=== PATIENT | male | born 1935 | race African-American/Black ===

== ENCOUNTER → 2016-10-20 | Outpatient (CLI) | payer MEDICARE ==
--- NOTE | ~2016-10-20 | CT57 ---
[facility] A Service of [facility] / [facility] RADIOLOGY TEXT RESULTS PATIENT: ALEJA SUAREZ LOCATION: [facility] : 37 UNIT #: [id number] AGE: [address]: TEREZA FLETCHER MD SEX: M ORDER DR: [id number] [facility] [address] [place], [place] [address] [id number] O MR#: [id number] Acc #: [id number] NAME: ALEJA SUAREZ : 1935 SEX: M STUDY DATE/TIME: 10/20/2016 10:31 UNIT: [facility] ROOM: STUDY DESCRIPTION: CT Chest Wo Cont Attending Physician: Tereza Fletcher M.D. Referring Physician: Tereza Fletcher M.D. Ordering Physician: Tereza Fletcher M.D. Primary Care Physician: Tereza Fletcher M.D. MEDICAL IMAGING REPORT This report is preliminary unless electronic signature is present EXAM CT scan of the chest without contrast INDICATION Abnormal chest x-ray. Chest pain and cough for [address] of the chest was performed without contrast. Coronal and sagittal reformatted images were obtained. This CT exam was performed with one or more of the following radiation dose reduction techniques: automatic exposure control, adjustment of mA and/or kV according to patient size, and iterative reconstruction. COMPARISON Chest x-ray from 10/14/2016. FINDINGS The abnormality on the chest x-ray represents a large calcification. It is benign appearing and either represents calcified granulomas or a calcified area of scarring. Emphysema. Micronodule in the lingula on image 38. 8.0 mm nodule in the anterior aspect of the right lower lobe on image 34. Wedge-shaped area of scarring or atelectasis in the right middle lobe. Minimal scarring or atelectasis in the dependent portions of the lower lobes. Multiple calcified granulomas elsewhere. No pleural effusion. Coronary artery calcifications. Calcified hilar lymph nodes on the right. Limited imaging of the upper abdomen is unremarkable. The bone windows are unremarkable. IMPRESSION 1. The abnormality on the chest x-ray represents large calcifications in the right upper lobe either representing calcified granulomas are calcified areas of scarring. STS. [facility] A Service of [facility] & [facility] RADIOLOGY TEXT RESULTS PATIENT: ALEJA SUAREZ LOCATION: [facility] : 37 UNIT #: [id number] AGE: [address]: TEREZA FLETCHER MD SEX: M ORDER DR: 2. Multiple other calcified granulomas are seen elsewhere in the lungs. 3. There is an 8.0 mm noncalcified nodule in the anterior right upper lobe. This is indeterminate. Recommend a followup chest CT in 3 months to document stability or clearing of this nodule. Dictated by... Jesus Hull M.D. THIS IS AN ELECTRONICALLY VERIFIED REPORT Jesus Hull M.D. at 10/21/2016 4:39 PM Pb TD: 10/20/2016 17:54 JOB #: [id number] MEDICAL IMAGING REPORT Page 1 of 1 COPY
== END | disposition home or self-care (01) ==
LOC: CCAT 09:50
DX: R93.8 Abnormal findings on diagnostic imaging of other specified body structures (principal); J98.4 Other disorders of lung; J84.10 Pulmonary fibrosis, unspecified
CPT/HCPCS: 71250